=== PATIENT | male | born 1960 | race Caucasian/White ===

== ENCOUNTER 2022-05-28 09:16 | Outpatient (CLI) | payer BC | END 2022-05-28 09:17 | disposition home or self-care (01) | LOC: CSHLAB 09:16 | PROVIDERS: ATTEND Surgery | DX: Z20.822 Contact with and (suspected) exposure to COVID-19 (principal); K40.90 Unilateral inguinal hernia, without obstruction or gangrene, not specified as recurrent | CPT/HCPCS: 87811 ==

== ENCOUNTER 2022-05-31 07:38 | Day surgery (SDC) | payer BC ==
[2022-05-29 14:42] VITALS: BMI 22.2
[2022-05-31] MEDS ORDERED: Bupivacaine 0.25% HCL 30 ML VIAL ONE (07:51)
[2022-05-31] MEDS ORDERED: EPINEPHrine 1 MG/ML AMP ONE (07:52)
[2022-05-31] MEDS ORDERED: Lidocaine 1% MPF 2 ML VIAL ONE (08:39)
[2022-05-31] MEDS ORDERED: Lidocaine 1% PF 5 ML VIAL ONE (09:01)
[2022-05-31] MEDS ORDERED: Rocuronium Bromide 10 MG/ML (10ML VIAL) ONE (09:01)
[2022-05-31] MEDS ORDERED: PROPOFOL 20 ML ONE (09:01)
[2022-05-31] MEDS ORDERED: Fentanyl 100 MCG/2 ML VIAL ONE (09:03)
[2022-05-31] MEDS ORDERED: Midazolam HCl 2 mg/2 ml Vial ONE (09:03)
[2022-05-31] MEDS ORDERED: CEFAZOLIN 2 GM VIAL ONE (09:13)
[2022-05-31] MEDS ORDERED: Dexamethasone 4 mg/ml Vial ONE (09:21)
[2022-05-31] MEDS ORDERED: Ondansetron PF 4 MG/2 ML Vial ONE (09:21)
[2022-05-31] MEDS ORDERED: ePHEDrine Sulfate 50 MG/10 ML VIAL ONE (09:41)
[2022-05-31] MEDS ORDERED: HYDROcodone/Acetaminophen 5/325 mg Tablet PO PRN (10:54)
[2022-05-31] MEDS ORDERED: Acetaminophen 325 MG TAB PO PRN (10:54)
[2022-05-31] MEDS ORDERED: HYDROcodone/Acetaminophen 5/325 mg Tablet ONE (11:50)
== END 2022-05-31 12:30 | disposition home or self-care (01) ==
LOC: CSHSDC 07:38
PROVIDERS: ATTEND Surgery
PROC: 0YU64JZ Supplement Left Inguinal Region with Synthetic Substitute, Percutaneous Endoscopic Approach (ICD-10-PCS; principal; 2022-05-31)
DX: K40.90 Unilateral inguinal hernia, without obstruction or gangrene, not specified as recurrent (principal); Z79.899 Other long term (current) drug therapy; Z20.822 Contact with and (suspected) exposure to COVID-19
CPT/HCPCS: C1713; J0171; J0690; J1100; J2250; J2405; J2704; J3010; S0020